=== PATIENT | female | born 2000 | race Hispanic/Latino ===

== ENCOUNTER 2023-09-07 12:38 | Emergency (ER) | payer BC ==
[2023-09-07] MEDS ORDERED: Dexamethasone 4 MG TAB ONE (13:27)
[2023-09-07 14:49] LABS: SARS-CoV-2 NAA Rapid Test Not Detected (NotDetected)
[2023-09-07] MEDS ORDERED: Ibuprofen 800 MG TAB ONE (15:00)
[2023-09-07] MEDS ORDERED: guaiFENesin ER 600 MG TAB PO SCH (15:15)
[2023-09-07] MEDS ORDERED: Pseudoephedrine HCl 30 MG TAB PO SCH (15:15)
== END 2023-09-07 16:04 | disposition home or self-care (01) ==
LOC: ERS 12:38
DX: B34.9 Viral infection, unspecified (principal); Z20.822 Contact with and (suspected) exposure to COVID-19
CPT/HCPCS: 87081; 87430; 99283; J8540; U0002